=== PATIENT | female | born 1995 | race Two or more races ===

== ENCOUNTER 2022-09-30 13:21 | Emergency (ER) | payer BC ==
[~2022-09-30] VITALS: Ht 170.2 cm; Wt 52.2 kg
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
--- NOTE | 2022-09-30 14:00 | NUR ---
DR MENDENHALL AT [facility] SIDE
[2022-09-30] MEDS ORDERED: CARI350T PO (15:03)
--- NOTE | 2022-09-30 15:20 | NUR ---
Patient discharged to home in stable condition. Written and verbal after care instructions given. Patient verbalizes understanding of instruction.
[2022-09-30 15:22] VITALS: BP 102/71
== END 2022-09-30 15:23 | disposition home or self-care (01) ==
LOC: ER 13:27
DX: S13.4XXA Sprain of ligaments of cervical spine, initial encounter (principal); S00.83XA Contusion of other part of head, initial encounter; V89.2XXA Person injured in unspecified motor-vehicle accident, traffic, initial encounter; Y93.89 Activity, other specified; Y92.89 Other specified places as the place of occurrence of the external cause; Y99.8 Other external cause status
CPT/HCPCS: 70450-TC; 72125-TC